=== PATIENT | male | born 1985 | race African-American/Black ===

== ENCOUNTER 2016-10-22 10:19 | Emergency (ER) | payer MEDICAID, OTHER ==
[~2016-10-22] VITALS: Ht 188 cm; Wt 87.0 kg
[~2016-10-22 10:19] MED LIST: DOXY100T PO; Z.0.NO CURRENT MEDS
[2016-10-22 10:26] VITALS: BP 138/69; PULSE 80; RESP 18; TEMP 98.5; O2SAT 98
[2016-10-22] MEDS ORDERED: KETOROLAC TROMETHAMINE 30 MG/ML (IVP) VIAL IV PUSH ONE (11:00)
[2016-10-22] MEDS ORDERED: SODIUM CHLOR 0.9% 1000 ML INJ 1,000 ML IV ONE (11:00)
[2016-10-22 11:19] LABS: AUTOMATED NEUTROPHIL # 1.3 TH/MM3 (1.8-7.7); BASOPHIL % 1.1 % (0.0-2.0); EOSINOPHIL # 0.1 TH/MM3 (0-0.4); EOSINOPHIL % 3.5 % (0.0-4.0); HEMATOCRIT 48.3 % (39.0-51.0); HEMO FLAGS DIFF FINAL; LYMPH % 36.4 % (9.0-44.0); LYMPHOCYTE # 0.9 TH/MM3 (1.0-4.8); MEAN CELL VOLUME 93.6 FL (80.0-100.0); MEAN CORPUSCULAR HGB CONC 33.1 % (32.0-36.0); MONO % 9.6 % (0.0-8.0); NEUT % 49.4 % (16.0-70.0); PLATELET COUNT 241 TH/MM3 (150-450); RED BLOOD COUNT 5.16 MIL/MM3 (4.50-5.90); RED CELL DISTRIBUTION WIDTH 11.9 % (11.6-17.2); WHITE BLOOD COUNT 2.5 TH/MM3 (4.0-11.0)
[2016-10-22 11:19] LABS: BLOOD, URINE NEG (NEG); GLUCOSE,URINE NEG (NEG); KETONE, URINE NEG (NEG); NITRITE,URINE NEG (NEG)
[2016-10-22 11:25] LABS: METHOD OF COLLECTION CLEAN CATCH; URINE COLOR YELLOW (YELLW/STRAW)
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
[2016-10-22 11:26] LABS: COMMENT (UR) CULT NOT INDICATED; CULTURE IF INDICATED CULT NOT INDICATED; RBC, URINE 0-3 /hpf (0-3); SQUAMOUS EPITHELIAL CELL URINE 0-5 /hpf (0-5); WBC, URINE 0-2 /hpf (0-5)
[2016-10-22 11:33] LABS: CHLORIDE 103 MEQ/L (98-107); POTASSIUM 3.9 MEQ/L (3.5-5.1); SODIUM (NA) 142 MEQ/L (136-145)
[2016-10-22 11:37] LABS: ANION GAP 6 MEQ/L (5-15); BICARBONATE 32.9 MEQ/L (21.0-32.0); BLOOD UREA NITROGEN 8 MG/DL (7-18)
[2016-10-22 11:39] LABS: ALT (GPT) 14 U/L (12-78)
[2016-10-22 11:40] LABS: AST (GOT) 20 U/L (15-37); GLOMERULAR FILTRATION RATE 107 ML/MIN (>89)
[2016-10-22 11:41] LABS: TOTAL BILIRUBIN ADULT 0.4 MG/DL (0.2-1.0)
[2016-10-22 11:42] LABS: ALKALINE PHOSPHATASE 61 U/L (45-117)
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
[2016-10-22 12:45] VITALS: BP 143/71
[2016-10-22] MEDS ORDERED: CYCL1TAB29 PO (12:58)
== END 2016-10-22 12:50 | disposition home or self-care (01) ==
LOC: PHED 10:19
DX: N50.3 Cyst of epididymis (principal)
CPT/HCPCS: 76870; 80053; 81001; 83690; 85025; 93975; 96361; 96374; 99284; J1885; J7030

== ENCOUNTER 2017-04-30 16:19 | Emergency (ER) | payer OTHER, MEDICAID ==
[~2017-04-30] VITALS: Ht 182.9 cm; Wt 100.0 kg
[~2017-04-30 16:19] MED LIST changes: +CYCL1TAB29 PO; -DOXY100T PO; -Z.0.NO CURRENT MEDS
[2017-04-30 16:21] VITALS: BP 138/74; PULSE 71; RESP 15; TEMP 98.2; O2SAT 97
[2017-04-30 18:21] VITALS: BP 138/65; PULSE 67; RESP 18; TEMP 97.8; O2SAT 100
[2017-04-30] MEDS ORDERED: ONDANSETRON HCL 4 MG/2 ML VIAL IV PUSH ONE (18:45)
[2017-04-30] MEDS ORDERED: SODIUM CHLORIDE 0.9% FLUSH 10 ML FLUSH IVF PRN (18:45)
[2017-04-30] MEDS ORDERED: MORPHINE SULFATE 4 MG/ML INJ IV PUSH ONE (18:45)
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
[2017-04-30] MEDS ORDERED: IOHEXOL 350 MG/ML 10 ML VIAL (for RAD DIAG) IVCONTRAST ONE (19:25)
[2017-04-30 19:30] LABS: APTT (PATIENT) 27.9 SEC (24.3-30.1); PROTHROMBIN TIME - PATIENT 10.8 SEC (9.8-11.6)
[2017-04-30 19:35] LABS: AUTOMATED NEUTROPHIL # 1.3 TH/MM3 (1.8-7.7); BASOPHIL % 0.8 % (0.0-2.0); EOSINOPHIL # 0.1 TH/MM3 (0-0.4); EOSINOPHIL % 2.3 % (0.0-4.0); HEMATOCRIT 48.8 % (39.0-51.0); LYMPH % 41.6 % (9.0-44.0); LYMPHOCYTE # 1.2 TH/MM3 (1.0-4.8); MEAN CELL VOLUME 93.4 FL (80.0-100.0); MEAN CORPUSCULAR HEMOGLOBIN 32.5 PG (27.0-34.0); MEAN CORPUSCULAR HGB CONC 34.7 % (32.0-36.0); MONO % 8.7 % (0.0-8.0); NEUT % 46.6 % (16.0-70.0); PLATELET COUNT 236 TH/MM3 (150-450); RED BLOOD COUNT 5.22 MIL/MM3 (4.50-5.90); RED CELL DISTRIBUTION WIDTH 12.7 % (11.6-17.2); WHITE BLOOD COUNT 2.8 TH/MM3 (4.0-11.0)
[2017-04-30 19:40] LABS: ALT (GPT) 43 U/L (12-78)
[2017-04-30 19:42] LABS: ALKALINE PHOSPHATASE 69 U/L (45-117); TOTAL BILIRUBIN ADULT 0.6 MG/DL (0.2-1.0)
[2017-04-30 19:45] LABS: ANION GAP 4 MEQ/L (5-15); AST (GOT) 40 U/L (15-37); BICARBONATE 30.9 MEQ/L (21.0-32.0); BLOOD UREA NITROGEN 8 MG/DL (7-18); CHLORIDE 103 MEQ/L (98-107); GLOMERULAR FILTRATION RATE 101 ML/MIN (>89); POTASSIUM 4.2 MEQ/L (3.5-5.1); SODIUM (NA) 138 MEQ/L (136-145)
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
[2017-04-30 19:50] LABS: HEMO FLAGS AUTO DIFF
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
[2017-04-30 20:43] LABS: PLATELET ESTIMATE SMEAR NORMAL (NORMAL); PLATELET MORPHOLOGY NORMAL (NORMAL); SCAN/DIFF AUTO DIFF CONFIRMED
[2017-04-30] MEDS ORDERED: CYCL1TAB29 PO (20:48)
[2017-04-30] MEDS ORDERED: HYDR-3533 PO (20:48)
== END 2017-04-30 21:14 | disposition home or self-care (01) ==
LOC: NEPD 16:19
DX: S16.1XXA Strain of muscle, fascia and tendon at neck level, initial encounter (principal); S39.012A Strain of muscle, fascia and tendon of lower back, initial encounter; D72.819 Decreased white blood cell count, unspecified; R51 Headache; V49.49XA Driver injured in collision with other motor vehicles in traffic accident, initial encounter; Y92.410 Unspecified street and highway as the place of occurrence of the external cause; Y99.0 Civilian activity done for income or pay
CPT/HCPCS: 70450; 71010; 71260; 72125; 72128; 72131; 74177; 80053; 85025; 85610; 85730; 86850; 86900; 86901; 96374; 96375; 99285; J2270; J2405; Q9967

== ENCOUNTER 2017-07-27 01:55 | Emergency (ER) | payer MEDICAID ==
[~2017-07-27] VITALS: Ht 188 cm; Wt 92.0 kg
[~2017-07-27 01:55] MED LIST changes: +CYCL10TA PO; -CYCL1TAB29 PO; +HYDR-3533 PO
[2017-07-27 01:58] VITALS: BP 160/90; PULSE 64; RESP 16; TEMP 97.5; O2SAT 100
[2017-07-27] MEDS ORDERED: HYDR-3516 PO (02:11)
[2017-07-27] MEDS ORDERED: AMOXICILLIN (TRIHYDRATE) 500 MG CAP PO ONE (02:30)
[2017-07-27] MEDS ORDERED: ACETAMINOPHEN/HYDROcodone 325 MG/5 MG TAB PO ONE (02:30)
[2017-07-27] MEDS ORDERED: NORC5TAB PO (02:32)
[2017-07-27] MEDS ORDERED: AMOX500C PO (02:32)
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
== END 2017-07-27 03:00 | disposition home or self-care (01) ==
LOC: NEPD 01:55
DX: K02.9 Dental caries, unspecified (principal)
CPT/HCPCS: 99284